=== PATIENT | female | born 2000 | race African-American/Black ===

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

== ENCOUNTER 2023-09-18 07:41 | Emergency (ER) | payer MEDICAID ==
[~2023-09-18] VITALS: Ht 167.6 cm; Wt 62.0 kg
[2023-09-18 07:50] VITALS: O2SAT 98
[2023-09-18] MEDS: MINERAL OIL 30ML BOTTLE PO ONE (08:15)
[2023-09-18 09:14] VITALS: BP 124/66; PULSE 89; RESP 18; TEMP 98
== END 2023-09-18 09:33 | disposition home or self-care (01) ==
LOC: ER 07:59
DX: T16.2XXA Foreign body in left ear, initial encounter (principal); X58.XXXA Exposure to other specified factors, initial encounter; Y93.89 Activity, other specified; Y92.89 Other specified places as the place of occurrence of the external cause; Y99.8 Other external cause status
CPT/HCPCS: 99284; Z7610

== ENCOUNTER 2024-02-21 20:26 | Emergency (ER) | payer MEDICAID ==
[~2024-02-21] VITALS: Ht 170.2 cm; Wt 82.0 kg
[2024-02-21 20:43] VITALS: O2SAT 100
[2024-02-21] MEDS: ACETAMINOPHEN 325MG TABLET PO ONE (23:17)
[2024-02-21 23:25] VITALS: BP 140/81; PULSE 80; RESP 18; TEMP 37.00296; O2SAT 99
== END 2024-02-21 23:31 | disposition home or self-care (01) ==
LOC: ER 20:26
DX: J02.9 Acute pharyngitis, unspecified (principal); R09.81 Nasal congestion
CPT/HCPCS: 87070; 87430; 99283

== ENCOUNTER 2024-03-09 20:37 | Emergency (ER) | payer MEDICAID ==
[~2024-03-09] VITALS: Ht 167.6 cm; Wt 72.0 kg
[2024-03-09 21:00] VITALS: BP 112/70; PULSE 100; RESP 18; TEMP 98.4; O2SAT 100; O2SAT 98
== END 2024-03-09 23:42 | disposition home or self-care (01) ==
LOC: ER 20:37
DX: J02.9 Acute pharyngitis, unspecified (principal)
CPT/HCPCS: 99281

== ENCOUNTER 2024-12-01 22:18 | Emergency (ER) | payer MEDICAID ==
[~2024-12-01] VITALS: Ht 167.6 cm; Wt 79.0 kg
[2024-12-02 00:17] VITALS: BP 114/67; PULSE 80; RESP 16; TEMP 36.5; O2SAT 100
== END 2024-12-02 00:17 | disposition home or self-care (01) ==
LOC: ER 22:18
DX: T16.9XXA Foreign body in ear, unspecified ear, initial encounter (principal); W44.9XXA Unspecified foreign body entering into or through a natural orifice, initial encounter; X58.XXXA Exposure to other specified factors, initial encounter; Y93.89 Activity, other specified; Y92.89 Other specified places as the place of occurrence of the external cause; Y99.8 Other external cause status
CPT/HCPCS: 99281; 99282

== ENCOUNTER 2025-01-12 20:17 | Emergency (ER) | payer MEDICAID ==
[~2025-01-12] VITALS: Ht 167.6 cm; Wt 67.0 kg
[2025-01-12 20:28] VITALS: O2SAT 97
[2025-01-12 20:30] VITALS: TEMP 36.7; O2SAT 98
[2025-01-12 22:30] LABS: CLARITY URINE CLEAR (CLEAR); COLOR URINE YELLOW (YELLOW); GLUCOSE URINE NEGATIVE (NEGATIVE); KETONES URINE NEGATIVE (NEGATIVE); LEUKOCYTE ESTERASE URINE NEGATIVE (NEGATIVE); NITRITE URINE NEGATIVE (NEGATIVE); OCCULT BLOOD URINE NEGATIVE (NEGATIVE); PH URINE 6.0 (4.5-8.0); PROTEIN URINE NEGATIVE (NEGATIVE); SPECIFIC GRAVITY URINE 1.020 (1.005-1.030); UROBILINOGEN URINE 0.2 E.U./dL (0.2-1.0)
[2025-01-12] MEDS ORDERED: IBUP-2029 MT (22:35)
[2025-01-12 22:46] VITALS: BP 128/64; PULSE 90; RESP 18
[2025-01-12] MEDS: IBUPROFEN 600MG TABLET PO ONE (22:46)
== END 2025-01-12 22:49 | disposition home or self-care (01) ==
LOC: ER 20:17
DX: M54.50 Low back pain, unspecified (principal)
CPT/HCPCS: 81003; 81025; 99283

== ENCOUNTER 2025-02-05 20:41 | Emergency (ER) | payer MEDICAID ==
[~2025-02-05] VITALS: Ht 167.6 cm; Wt 73.7 kg
[~2025-02-05 20:41] MED LIST: IBUP-1455 MT
[2025-02-05 21:34] VITALS: O2SAT 99
[2025-02-05] MEDS ORDERED: BENZ100C86 MT (22:35)
[2025-02-05] MEDS ORDERED: IBUP-1455 MT (22:35)
[2025-02-05 22:47] VITALS: BP 121/73; PULSE 98; RESP 18; TEMP 36.7; O2SAT 98
[2025-02-05 23:13] LABS: INFLUENZA TYPE A Presumptive Negative (Pres. Neg.)
[2025-02-05 23:14] LABS: INFLUENZA TYPE B Presumptive Negative (Pres. Neg.)
[2025-02-05 23:15] LABS: RESPIRATORY SYNCYTIAL VIRUS Not Detected (Not Detectd)
== END 2025-02-05 22:53 | disposition home or self-care (01) ==
LOC: ER 20:41
DX: J06.9 Acute upper respiratory infection, unspecified (principal); B97.89 Other viral agents as the cause of diseases classified elsewhere; Z20.822 Contact with and (suspected) exposure to COVID-19
CPT/HCPCS: 87420; 87426; 87804; 99283

== ENCOUNTER 2025-02-06 20:20 | Emergency (ER) | payer MEDICAID ==
[~2025-02-06] VITALS: Ht 167.6 cm; Wt 65.4 kg
[~2025-02-06 20:20] MED LIST changes: +BENZ100C86 MT
[2025-02-06 20:32] VITALS: O2SAT 100
[2025-02-06 22:04] VITALS: BP 121/59; PULSE 77; RESP 18; TEMP 37.6; O2SAT 100
== END 2025-02-06 22:05 | disposition home or self-care (01) ==
LOC: ER 20:20
DX: J06.9 Acute upper respiratory infection, unspecified (principal); B97.89 Other viral agents as the cause of diseases classified elsewhere
CPT/HCPCS: 99282